=== PATIENT | female | born 1995 | race Caucasian/White ===

== ENCOUNTER 2021-06-13 22:07 | Emergency (ER) | payer BC, OTHER ==
[~2021-06-13] VITALS: Ht 180.3 cm; Wt 80.3 kg
--- NOTE | 2021-06-13 22:17 | NUR ---
PT BIBS C/O LEFT EYEBROW LAC. -KO TDAP UTD. -BLOOD THINNERS. PATIENT ALERT AND ORIENTED X3. AMBULATORY WITH NON LABORED BREATHING.
--- NOTE | 2021-06-13 22:18 | NUR ---
EMT @ BEDSIDE CLEANING WOUND
[2021-06-13 22:45] VITALS: BP 144/69
--- NOTE | 2021-06-13 22:45 | NUR ---
Patient discharged to home in stable condition. Written and verbal after care instructions given. Patient verbalizes understanding of instruction.
== END 2021-06-13 22:46 | disposition home or self-care (01) ==
LOC: ER 22:26
DX: S01.81XA Laceration without foreign body of other part of head, initial encounter (principal); W22.8XXA Striking against or struck by other objects, initial encounter; Y93.01 Activity, walking, marching and hiking; Y92.89 Other specified places as the place of occurrence of the external cause; Y99.8 Other external cause status